=== PATIENT | male | born 1955 | race Caucasian/White ===

== ENCOUNTER 2017-07-12 04:39 | Emergency (ER) | payer OTHER ==
--- NOTE | 2017-07-12 04:45 | PDOC ---
History of Present Illness - General Chief Complaint: Pain, Acute Stated Complaint: GOUT Time Seen by Provider: 07/12/17 04:42 - History of Present Illness Initial Comments: This 62-year-old man with a history of hypertension/gout/bladder carcinoma presents with a approximately 12 hour history of right first MTP joint swelling/ redness/pain consistent with acute flare up of his gout. Patient had 1 tablet of 0.6 mg called to scene left and he took this approximately 11 PM last night. He continues to have pain in the joint; he attempted to refill his colchicine prescription electronically but there were no refills available. The patient states that the symptoms that he is feeling is very typical of his acute gout; he has had no trauma to the area. No other joints are inflamed currently. 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 NO KNOWN DRUG ALLERGIES Past History - Past Medical History Allergies/Adverse Reactions: Allergies Allergy/AdvReac Type Severity Reaction Status Date / Time No Known Allergies Allergy Verified 07/12/17 04:41 Home Medications: Ambulatory Orders Allopurinol [Zyloprim -] 100 mg PO DAILY 07/12/17 Colchicine 0.6 mg PO Q8H 07/12/17 Colchicine [Colcrys -] 0.6 mg PO BID #20 tablet 07/12/17 Lisinopril 5 mg PO DAILY 07/12/17 Review of Systems - Review of Systems Able to Perform ROS?: Yes Comments:: 12 point review of systems is negative except for what is noted in the history of present illness *Physical Exam - Physical Exam Comments: GENERAL: HEAD: Normal with no signs of trauma. EYES: PERRLA, EOMI, sclera anicteric, conjunctiva clear. EXTREMITIES: Right lower extremity-moderate edema/moderate tenderness/mild erythema first MTP joint Mild edema/mild tenderness hallux; no fluctuance/lymphangitic streaking MUSCULOSKELETAL: Back non-tender to palpation, no CVA tenderness SKIN: Warm, Dry, normal turgor, no rashes or lesions noted. Medical Decision Making - Medical Decision Making Clinical presentation consistent with acute flareup of gout in right first MTP joint. Exam reveals typical presentation of podagra. Patient had 0.6 mg of colchicine approximately 6 hours prior to presentation. He was given 1.2 mg now and prescription for colchicine 0.6 mg twice a day (#20 ) transmitted to patient's pharmacy. Patient states that the usual regimen that he follows as prescribed by his doctor (Dr. Singh from [facility] ) is colchicine 0.6 mg twice a day until pain subsides. Patient should return if he has worsening pain/swelling/redness or if he develops fever. Otherwise, he should follow-up with his own doctor within the next week 07/12/17 05:53 *DC/Admit/Observation/Transfer Diagnosis at time of Disposition: Acute gout Qualifiers: Gout site: toe Gout etiology: unspecified cause Laterality: right Qualified Code(s): M10.9 - Gout, unspecified - Discharge Dispostion Disposition: HOME Condition at time of disposition: Stable - Prescriptions Prescriptions: Colchicine [Colcrys -] 0.6 mg PO BID #20 tablet - Referrals - Patient Instructions Printed Discharge Instructions: Gout Additional Instructions: Drink plenty of water Colchicine 0.6 mg tonight, then twice a day as previously prescribed Return if you have persistent severe pain or worsening swelling Follow-up with your general medical doctor within one week - Post Discharge Activity
[2017-07-12 04:50] VITALS: BP 139/70; PULSE 70; TEMP 98.1; BMI 39.9
[2017-07-12] MEDS ORDERED: COLCHICINE 0.6 MG TABLET (FP) ONE (04:55)
[2017-07-12] MEDS ORDERED: COLCHICINE 0.6 MG TABLET (FP) PO ONE (04:55)
== END 2017-07-12 05:07 | disposition home or self-care (01) ==
LOC: FER 04:39
DX: M10.9 Gout, unspecified (principal); I10 Essential (primary) hypertension; Z85.51 Personal history of malignant neoplasm of bladder
CPT/HCPCS: 99281-25